=== PATIENT | female | born 1985 | race Caucasian/White ===

== ENCOUNTER → 2017-01-20 | Outpatient (CLI) | payer MEDICAID ==
[~2017-01-20] MED LIST: CEFU500T PO; DOCU100C37 PO; FERR-74 PO; FERR-84 PO; HYDR-3812 PO; IBUP-1773 PO; LEVO75TA6 PO; NITR-65 PO; PREN1TAB79 PO; TRAM50TA2 PO
--- NOTE | 2017-01-20 14:24 | Diagnostic Imaging Report ---
PROCEDURE: US Thyroid. TECHNIQUE: Multiple real-time grayscale images were obtained of the thyroid in various projections. INDICATION: Left-sided neck pain. COMPARISON: None. DISCUSSION: The thyroid gland is normal in size measuring 4.8 x 1.3 x 1.4 cm on the right and 4.1 x 1.2 x 1.4 cm on the left. The thyroid gland is not hypervascular. The thyroid gland is mildly heterogenous which is nonspecific though could be seen with some forms of thyroiditis. No discrete nodule or suspicious microcalcifications identified otherwise. No abnormal adjacent lymph nodes identified. IMPRESSION: 1. Heterogenous thyroid gland. Dictated by: Dictated on workstation # [id number]
== END ==
LOC: RAD 12:29
PROVIDERS: ATTEND Obstetrics & Gynecology
DX: E04.1 Nontoxic single thyroid nodule (principal)
CPT/HCPCS: 76536

== ENCOUNTER 2017-03-03 13:34 | Outpatient (RCR) | payer MEDICAID | END 2017-04-26 | disposition home or self-care (01) | LOC: CARD 13:34 | PROVIDERS: ATTEND Internal Medicine Interventional Cardiology | DX: R00.2 Palpitations (principal); R06.02 Shortness of breath; M25.473 Effusion, unspecified ankle | CPT/HCPCS: 93225; 93226 ==

== ENCOUNTER → 2017-03-03 | Outpatient (CLI) | payer MEDICAID | LOC: CARD 13:32 | PROVIDERS: ATTEND Internal Medicine Interventional Cardiology | DX: R00.2 Palpitations (principal); R06.02 Shortness of breath; M25.473 Effusion, unspecified ankle | CPT/HCPCS: 93306 ==

== ENCOUNTER → 2018-10-26 | Outpatient (CLI) | payer BC ==
[~2018-10-26] MED LIST changes: +ACHD5005 PO; -FERR-74 PO; +FERR325T18 PO; -HYDR-3812 PO
[2018-10-26 09:51] LABS: CALCIUM 9.5 MG/DL (8.5-10.1); CREATININE SERUM 1.1 MG/DL (0.60-1.30); POTASSIUM 4.5 MMOL/L (3.6-5.0)
== END ==
LOC: LAB 09:13
PROVIDERS: ATTEND Internal Medicine Endocrinology, Diabetes & Metabolism
DX: E28.2 Polycystic ovarian syndrome (principal); E03.8 Other specified hypothyroidism
CPT/HCPCS: 36415; 80048; 80061; 83036; 83525; 84443

== ENCOUNTER → 2018-10-29 | Outpatient (CLI) | payer BC ==
--- NOTE | 2018-10-29 21:16 | Diagnostic Imaging Report ---
INDICATION: Left axillary lump and tenderness. EXAMINATION: Sonographic interrogation of the left axilla was performed. FINDINGS: No sonographic abnormality is seen. No solid or cystic mass is identified. IMPRESSION: No sonographic abnormality is detected. Dictated by: Dictated on workstation # [id number]
== END ==
LOC: RAD 09:30
PROVIDERS: ATTEND Surgery
DX: R59.0 Localized enlarged lymph nodes (principal)
CPT/HCPCS: 76641

== ENCOUNTER → 2018-10-29 | Outpatient (CLI) | payer BC, MEDICAID ==
--- NOTE | 2018-10-29 14:09 | Diagnostic Imaging Report ---
PROCEDURE: US Non-ob pelvis comp/trans. TECHNIQUE: Multiple realtime grayscale images were obtained of the pelvis in various projections endovaginally. Transabdominal imaging was also performed. INDICATION: Pelvic pain. The uterus measures 6.1 x 5.5 x 3.3 cm. Patient has an IUD. IUD appears to be low in position in the region of the lower uterine segment and cervix. No myometrial mass is seen. Right ovary measures 4.0 x 3.8 x 2.3 cm and the left ovary measures 3.3 x 2.7 x 2.7 cm. Both ovaries contain small follicles. There is blood flow bilaterally. No adnexal mass or free fluid is seen. IMPRESSION: The patient's IUD appears to be in low in position in the region of the lower uterine segment and cervix. No other significant abnormalities detected. Dictated by: Dictated on workstation # [id number]
== END ==
LOC: RAD 09:29
PROVIDERS: ATTEND Obstetrics & Gynecology
DX: N94.19 Other specified dyspareunia (principal); R10.2 Pelvic and perineal pain; Z97.5 Presence of (intrauterine) contraceptive device
CPT/HCPCS: 76830; 76856

== ENCOUNTER → 2019-12-03 | Outpatient (CLI) | payer BC, MEDICAID, OTHER ==
[~2019-12-03] MED LIST changes: -TRAM50TA2 PO; +TRM50T PO
--- NOTE | 2019-12-03 14:57 | Diagnostic Imaging Report ---
PROCEDURE: US Non-ob pelvis comp/trans. TECHNIQUE: Multiple realtime grayscale images were obtained of the pelvis in various projections endovaginally. Transabdominal imaging was also performed. INDICATION: Atypical uterine bleeding. FINDINGS: The uterus is retroverted and measures 6.5 x 3.2 x 5.7 cm. The endometrial thickness is less than 3 mm. There are no myometrial or endometrial masses. Both ovaries normal size and morphology and demonstrate normal blood flow. There are no adnexal masses. There is no free pelvic fluid. IMPRESSION: Unremarkable pelvic ultrasound. Dictated by: Dictated on workstation # [id number]
== END ==
LOC: RAD 10:41
PROVIDERS: ATTEND Obstetrics & Gynecology
DX: N93.8 Other specified abnormal uterine and vaginal bleeding (principal)
CPT/HCPCS: 76830; 76856

== ENCOUNTER 2021-06-27 11:18 | Observation (INO) | payer MEDICAID ==
[2021-06-27] VITALS (9 sets, daily range): BP systolic 118–132; BP diastolic 56–80
[~2021-06-27] VITALS: Ht 160 cm; Wt 85.2 kg
[2021-06-27 11:43] LABS: BILIRUBIN,URINE NEGATIVE (NEGATIVE); CLARITY,URINE CLEAR; COLOR,URINE YELLOW; GLUCOSE, URINE (UA) NEGATIVE (NEGATIVE); KETONES,URINE NEGATIVE (NEGATIVE); LEUKOCYTE ESTERASE ,URINE NEGATIVE (NEGATIVE); NITRITE,URINE NEGATIVE (NEGATIVE); PH,URINE 6.5 (5-9); PROTEIN,URINE NEGATIVE (NEGATIVE)
[2021-06-27 12:02] LABS: BACTERIA,URINE TRACE /HPF; RBC,URINE RARE /HPF; WBC,URINE RARE /HPF
[2021-06-27] MEDS ORDERED: ACETAMINOPHEN 500 MG TAB (TYLENOL) PO ONE (14:00)
[2021-06-27] MEDS ORDERED: ACETAMINOPHEN 500 MG TAB (TYLENOL) ONE (14:03)
[2021-06-27] MEDS ORDERED: LACTATED RINGERS 1,000 ML IV ONE (14:03)
[2021-06-27] MEDS: LACTATED RINGERS 1,000 ML IV SCH ×5 (14:14→22:04)
--- NOTE | 2021-06-27 15:01 | OB Triage Report ---
Standard Progress Note Progress Notes/Assess & Plan Date Seen by a Provider: Jun 27, 2021 Time Seen by a Provider: 13:50 Expected Date of Delivery: Aug 02, 2021 Gestational Age in Weeks: 34 Gestational Age in Days: 6 LMP/BRENTON Comment: BRENTON 08/02/20 Diagnosis/Problems Diagnosis/Problems (1) (2) Threatened labor, antepartum KATHY FOREMAN MD Jun 27, 2021 15:01
[2021-06-27] MEDS ORDERED: BETAMETHASONE ACE/NA PHOS 6 MG/ML (CELESTONE SOLUSPAN) ONE (15:53)
[2021-06-27] MEDS: BETAMETHASONE ACE/NA PHOS 6 MG/ML (CELESTONE SOLUSPAN) IM SCH (15:54)
[2021-06-27] MEDS ORDERED: NIFEdipine 10 MG CAPS (WOMEN'S SERVICES ONLY!!!) PO ONE (16:30)
--- NOTE | 2021-06-27 16:43 | History & Physical-OB ---
OB - Chief Complaint & HPI Date/Time Date of Admission: Date of Admission: 06/27/21 Date seen by a Provider: Jun 27, 2021 Time Seen by a Provider: 15:30 Chief Complaint/History OB-Reason for Admission/Chief: Labor Hx : 5 Hx Para: 3 Expected Date of Delivery: Aug 02, 2021 Gestational Age in Weeks: 34 Gestational Age in Days: 6 Indication for : desires repeat Admission Nurse Assessment Rev: Yes History of Labs O neg, Rubella immune, Hep BsAg non-reactive, Syphilis Ab non-reactive, HIV non- reactive Allergies and Home Medications Allergies Coded Allergies: amoxicillin (Verified Allergy, Unknown, 03/15/15) Patient Home Medication List Home Medication List Reviewed: Yes Cefuroxime Axetil (Ceftin) 500 Mg Tablet, 500 MG PO BID Prescribed by: DAVID STEIN on 05/03/16 193 Last Action: Reviewed Ferrous Sulfate (Ferrous Sulfate) 325 Mg Tablet, 325 MG PO BID WITH MEALS Prescribed by: CANELO MANJARREZ on 09/11/15 0819 Last Action: Reviewed Levothyroxine Sodium (Levothyroxine Sodium) 75 Mcg Tablet, 175 MCG PO DAILY, (Reported) Entered as Reported by: WILMAR BRAR on 03/15/15 190 Last Action: Edited OB - History Hx of Present Care: Yes Ultrasounds: Abnormal US findings ( liver calcification) Obstetrical Complications: Gestational Diabetes, Other (Hypothyroidism) Medical Complications: Other (Hypothyroidism) Information Induced Hypertension: No Maternal Gestational Diabetes: Yes Hemorrhage: No Obstetrical History Hx : 5 Hx Para: 3 Hx Termination: Yes (Spontaneous ) Hx Total # of Abortions (Spona: 1 Hx Multiple Gestation: No Hx Stillbirth: No Hx Complication: Yes (Preclampsia) Hx Induced Hypertens: No Hx Maternal Gestational Diabet: Yes Delivery History Hx Dystocia: No Hx Large For Gestational Age I: No Hx Small for Gestational Age I: No Hx Section: No Hx Vaginal Delivery Post C-Sec: No Hx Blood Disorders: No Adverse Rxn to Tranfusion: No Patient Past Medical History Hypothyroidism Social History/Family History Alcohol Use: Denies Use Recreational Drug Use: No Immunizations Hepatitis A: No Hepatitis B: No Tetanus Booster (TDap): More than 5yrs Date of Influenza Vaccine: Apr 19, 2016 OB - Admission Exam Physical Exam Vitals: Vital Signs 06/27/21 11:54 Temp 36.7 Pulse 103 Resp 18 Pulse Ox 97 O2 Delivery Room Air HEENT: Comment: (Atraumatic) Lungs: Equal (non-labored, symmetric chest rise) Abdomen: Gravid Extremities: Normal Reflexes: Normal Cervical Dilatation: 1cm Effacement: 50% Station: -3 Membranes: Intact Heart Rate: 120's Accelerations: Accelerations Present Decelerations: No Decelerations Short Term Variability: Present Residential Variability: Average (6-25) Contractions on Admission: < 5 Minutes Apart Date/Time Contractions Began;: 06/26/2021 Labs Laboratory Tests Test 06/27/21 11:30 Range/Units Urine Color YELLOW Urine Clarity CLEAR Urine pH 6.5 5-9 Urine Specific [place] 1.020 1.016-1.022 Urine Protein NEGATIVE NEGATIVE Urine Glucose (UA) NEGATIVE NEGATIVE Urine Ketones NEGATIVE NEGATIVE Urine Nitrite NEGATIVE NEGATIVE Urine Bilirubin NEGATIVE NEGATIVE Urine Urobilinogen 0.2 < = 1.0 MG/DL Urine Leukocyte Esterase NEGATIVE NEGATIVE Urine RBC (Auto) NEGATIVE NEGATIVE Urine RBC RARE /HPF Urine WBC RARE /HPF Urine Squamous Epithelial Cells 5-10 /HPF Urine Crystals NONE /LPF Urine Bacteria TRACE /HPF Urine Casts NONE /LPF Urine Mucus NEGATIVE /LPF Urine Culture Indicated NO OB - Assessment/Plan/Diagnosis Assessment Assessment: other (Threatened labor) Admission Dx Threatened labor Admission Status: Observation Plan Plan: Other ( corticosteroid administration for lung maturity, Tocolysis) Problems: (1) Assessment & Plan: 36 yo with hx of labor and delivery, and IUP at 34w6d who presents with painful contractions Threatened labor - SVE 1.5/50/-3 - Contractions Q 3-5 minutes - corticosteroid for lung maturity - Tocolysis through corticosteroid window Gestational diabetes: continue home metformin and insulin doses per pat report - Metformin 500mg PO BID - Insulin Lantus 18u QHS - POC glucose monitoring fasting and 2 hr PP levels Hypothyroidism - Home Levothyroxine dose at 175mcg daily Delivery plan - Pt desires repeat delivery if delivery is indicated SCDs while in bed Regular diet: meal by meal cEFM IV Fluids: NS at 125m/hr Qualifiers: Qualified Codes: Z3A.34 - 34 weeks gestation of (2) Threatened labor, antepartum KELLEN,EBUNOLUWA O MD Jun 27, 2021 16:43
[2021-06-27] MEDS ORDERED: ACETAMINOPHEN 500 MG TAB (TYLENOL) PO PRN (17:00)
[2021-06-27 17:38] LABS: BASOPHILS % (AUTO) 0 % (0-10); EOSINOPHILS # (AUTO) 0.1 10^3/uL (0.0-0.3); EOSINOPHILS % (AUTO) 1 % (0-10); HEMATOCRIT 29 % (35-52); HEMOGLOBIN 9.7 g/dL (11.5-16.0); LYMPHOCYTES # (AUTO) 1.1 10^3/uL (1.0-4.0); LYMPHOCYTES % (AUTO) 15 % (12-44); MEAN CORPUSCULAR HEMOGLOBIN 30 pg (25-34); MEAN CORPUSCULAR HGB CONC 33 g/dL (32-36); MEAN CORPUSCULAR VOLUME 90 fL (80-99); MEAN PLATELET VOLUME 10.8 fL (9.0-12.2); MONOCYTES # (AUTO) 0.6 10^3/uL (0.0-1.0); MONOCYTES % (AUTO) 8 % (0-12); NEUTROPHILS # (AUTO) 5.8 10^3/uL (1.8-7.8); NEUTROPHILS % (AUTO) 76 % (42-75); PLATELET COUNT 169 10^3/uL (130-400); WHITE BLOOD COUNT 7.6 10^3/uL (4.3-11.0)
[2021-06-27] MEDS ORDERED: NIFEdipine 10 MG CAPS (WOMEN'S SERVICES ONLY!!!) PO SCH (18:00)
[2021-06-27] MEDS ORDERED: CYCLOBENZAPRINE 10 MG (FLEXERIL) TAB PO PRN (20:15)
[2021-06-27] MEDS: DOCUSATE SODIUM 100 MG (COLACE) CAP PO SCH (20:20)
[2021-06-27] MEDS: metFORMIN 500 MG (GLUCOPHAGE) TAB PO SCH (20:26)
[2021-06-27] MEDS: FERROUS SULF 325 MG (IRON) TAB PO SCH (20:26)
[2021-06-27] MEDS: metroNIDAZOLE 500 MG (FLAGYL) TAB PO SCH (20:27)
[2021-06-27] MEDS ORDERED: TERBUTALINE INJ 1 MG/ML (BRETHINE) AMP SC ONE (20:30)
[2021-06-27] MEDS: NIFEdipine 10 MG CAPS (WOMEN'S SERVICES ONLY!!!) PO SCH (21:59)
[2021-06-27] MEDS: CATHETER FLUSH 10 ML SYR IV SCH (22:04)
[2021-06-28] VITALS (9 sets, daily range): BP systolic 103–123; BP diastolic 56–70
[2021-06-28] MEDS: NIFEdipine 10 MG CAPS (WOMEN'S SERVICES ONLY!!!) PO SCH ×3 (03:27→15:31)
[2021-06-28] MEDS: LACTATED RINGERS 1,000 ML IV SCH (04:52)
[2021-06-28] MEDS: CATHETER FLUSH 10 ML SYR IV SCH (05:31)
[2021-06-28] MEDS ORDERED: LEVOTHYROXINE 100 MCG (LEVOTHROID) TAB PO SCH (06:30)
[2021-06-28] MEDS ORDERED: LEVOTHYROXINE 75 MCG (LEVOTHROID) TABLET PO SCH (06:30)
[2021-06-28] MEDS: metroNIDAZOLE 500 MG (FLAGYL) TAB PO SCH (09:01)
[2021-06-28] MEDS: FERROUS SULF 325 MG (IRON) TAB PO SCH (09:01)
[2021-06-28] MEDS: DOCUSATE SODIUM 100 MG (COLACE) CAP PO SCH (09:01)
[2021-06-28] MEDS: metFORMIN 500 MG (GLUCOPHAGE) TAB PO SCH (09:01)
[2021-06-28 12:14] LABS: BASOPHILS % (AUTO) 0 % (0-10); EOSINOPHILS % (AUTO) 0 % (0-10); HEMATOCRIT 29 % (35-52); HEMOGLOBIN 9.7 g/dL (11.5-16.0); LYMPHOCYTES # (AUTO) 1.1 10^3/uL (1.0-4.0); LYMPHOCYTES % (AUTO) 11 % (12-44); MEAN CORPUSCULAR HEMOGLOBIN 30 pg (25-34); MEAN CORPUSCULAR HGB CONC 33 g/dL (32-36); MEAN CORPUSCULAR VOLUME 90 fL (80-99); MEAN PLATELET VOLUME 10.4 fL (9.0-12.2); MONOCYTES # (AUTO) 0.9 10^3/uL (0.0-1.0); MONOCYTES % (AUTO) 9 % (0-12); NEUTROPHILS # (AUTO) 8.1 10^3/uL (1.8-7.8); NEUTROPHILS % (AUTO) 79 % (42-75); PLATELET COUNT 181 10^3/uL (130-400); WHITE BLOOD COUNT 10.2 10^3/uL (4.3-11.0)
--- NOTE | 2021-06-28 12:41 | Antepartum Progress Note ---
Antepartum Progress Antepartum Progress Date Seen by Provider: Jun 28, 2021 Time Seen by Provider: 12:00 Hospital Day # 1 Subjective: No new complaints today. Notes good movements. Continues to note contractions unchanged from admission. Some improvement last night. Cramping today. Denies vaginal bleeding, abnormal vaginal discharge, or LOF. Tolerating regular diet without nausea or vomiting. Objective: Vital Signs 06/27/21 06/27/21 06/28/21 11:54 17:01 05:30 Temp 36.7 Pulse 90 Resp 18 B/P (MAP) 103/69 (80) Pulse Ox 97 O2 Delivery Room Air Physical Exam General - alert and oriented, no apparent distress Heart: normal rate and peripheral perfusion Lungs: symmetric chest rise, non-labored respirations Abdomen: Soft, gravid, non-tender to palpation Ext: non-tender to palpation, no edema, negative Eva's bilaterally heart tones: 120bpm, mod variability, + accels, intermittent jeb Decels Tocometer: contractions q 5-10 min Bedside US: no overt evidence of placental abruption Laboratory Tests Test 06/27/21 17:25 06/27/21 20:03 06/28/21 06:25 06/28/21 12:05 Range/Units White Blood Count 7.6 10.2 4.3-11.0 10^3/uL Red Blood Count 3.21 L 3.22 L 3.80-5.11 10^6/uL Hemoglobin 9.7 L 9.7 L 11.5-16.0 g/dL Hematocrit 29 L 29 L 35-52 % Mean Corpuscular Volume 90 90 80-99 fL Mean Corpuscular Hemoglobin 30 30 25-34 pg Mean Corpuscular Hemoglobin Concent 33 33 32-36 g/dL Red Cell Distribution Width 14.4 14.5 10.0-14.5 % Platelet Count 169 181 130-400 10^3/uL Mean Platelet Volume 10.8 10.4 9.0-12.2 fL Immature Granulocyte % (Auto) 1 1 % Neutrophils (%) (Auto) 76 H 79 H 42-75 % Lymphocytes (%) (Auto) 15 11 L 12-44 % Monocytes (%) (Auto) 8 9 0-12 % Eosinophils (%) (Auto) 1 0 0-10 % Basophils (%) (Auto) 0 0 0-10 % Neutrophils # (Auto) 5.8 8.1 H 1.8-7.8 10^3/uL Lymphocytes # (Auto) 1.1 1.1 1.0-4.0 10^3/uL Monocytes # (Auto) 0.6 0.9 0.0-1.0 10^3/uL Eosinophils # (Auto) 0.1 0.0 0.0-0.3 10^3/uL Basophils # (Auto) 0.0 0.0 0.0-0.1 10^3/uL Immature Granulocyte # (Auto) 0.1 0.1 0.0-0.1 10^3/uL Glucometer 129 H 96 70-110 MG/DL Assessment: Dewayne Gann is a 36 yo /Para 5/3, with IUP at 35 weeks gestation who was admitted for threatened labor. Bedside ultrasound performed today without overt evidence of placental abruption Plan: UA negative infection Bacterial vaginosis: continue flagyl course 2nd dose BMZ course today Continue tocolysis with Nifedipine through BMZ course Continue IV fluids Desires repeat section if delivery is indicated Regular diet vitamin daily. VTE prophylaxis: SCDs while in bed Anticipate discharge later today pending completion of corticosteroids, if no cervical change. Vitals - Labs Vital Signs - I&O Vital Signs Date Time Temp Pulse Resp B/P (MAP) Pulse Ox O2 Delivery O2 Flow Rate FiO2 06/28/21 05:30 90 103/69 (80) 06/28/21 04:30 81 110/68 (82) 06/28/21 03:30 94 122/61 (81) 06/28/21 02:30 91 106/70 (82) 06/28/21 01:30 92 105/58 (74) 06/28/21 00:30 88 105/57 (73) 06/28/21 00:00 94 108/56 (73) 06/27/21 22:15 109 118/56 (76) 06/27/21 22:00 99 118/64 (82) 06/27/21 21:45 109 129/73 (91) 06/27/21 21:30 110 132/75 (94) 06/27/21 21:15 107 122/76 (91) 06/27/21 21:00 99 128/75 (92) 06/27/21 20:45 101 128/74 (92) 06/27/21 17:01 85 18 120/70 (87) Room Air I & O 06/28/21 07:00 Intake Total 1000 ml Balance 1000 ml Labs Laboratory Tests 06/27/21 17:25: White Blood Count 7.6, Red Blood Count 3.21L, Hemoglobin 9.7L, Hematocrit 29L, Mean Corpuscular Volume 90, Mean Corpuscular Hemoglobin 30, Mean Corpuscular Hemoglobin Concent 33, Red Cell Distribution Width 14.4, Platelet Count 169, Mean Platelet Volume 10.8, Immature Granulocyte % (Auto) 1, Neutrophils (%) (Auto) 76H, Lymphocytes (%) (Auto) 15, Monocytes (%) (Auto) 8, Eosinophils (%) (Auto) 1, Basophils (%) (Auto) 0, Neutrophils # (Auto) 5.8, Lymphocytes # (Auto) 1.1, Monocytes # (Auto) 0.6, Eosinophils # (Auto) 0.1, Basophils # (Auto) 0.0, Immature Granulocyte # (Auto) 0.1 06/27/21 20:03: Glucometer 129H 06/28/21 06:25: Glucometer 96 06/28/21 12:05: White Blood Count 10.2, Red Blood Count 3.22L, Hemoglobin 9.7L, Hematocrit 29L, Mean Corpuscular Volume 90, Mean Corpuscular Hemoglobin 30, Mean Corpuscular Hemoglobin Concent 33, Red Cell Distribution Width 14.5, Platelet Count 181, Mean Platelet Volume 10.4, Immature Granulocyte % (Auto) 1, Neutrophils (%) (Auto) 79H, Lymphocytes (%) (Auto) 11L, Monocytes (%) (Auto) 9, Eosinophils (%) (Auto) 0, Basophils (%) (Auto) 0, Neutrophils # (Auto) 8.1H, Lymphocytes # (Auto) 1.1, Monocytes # (Auto) 0.9, Eosinophils # (Auto) 0.0, Basophils # (Auto) 0.0, Immature Granulocyte # (Auto) 0.1 Microbiology 06/27/21 Wet Prep - Final, Complete KATHY FOREMAN MD Jun 28, 2021 12:41
[2021-06-28 12:49] LABS: BAND NEUTROPHILS 0 %; BASOPHILS % (MANUAL) 0 %; EOSINOPHILS % (MANUAL) 0 %; LYMPHOCYTES % (MANUAL) 10 %; MONOCYTES % (MANUAL) 4 %; NEUTROPHILS % (MANUAL) 86 %; RBC MORPH NORMAL
[2021-06-28] MEDS: BETAMETHASONE ACE/NA PHOS 6 MG/ML (CELESTONE SOLUSPAN) IM SCH (15:32)
[2021-06-28] MEDS ORDERED: METR-145 PO (15:47)
--- NOTE | 2021-06-28 15:52 | Discharge Inst-Simple/Standard ---
Discharge Inst-Standard Reconcile Patient Problems Problems Reviewed?: Yes Discharge Medications New, Converted or Re-Newed RX: Transmitted to Pharmacy Patient Instructions/Follow Up Plan of Care/Instructions/FU: Keep all follow-up appointments Activity as Tolerated: Yes Discharge Diet: No Restrictions Return to The Hospital For: Vaginal bleeding, decreased/absent movements, leakage of fluid per vagina, more frequent and painful contractions. Fever of 100.4 F or greater, or other concerns. KATHY FOREMAN MD Jun 28, 2021 15:52
--- NOTE | 2021-06-28 15:52 | Short Stay Summary ---
Discharge Summary Hospital Course Was the Problem List Reviewed?: Yes Problems/Dx: (1) Qualifiers: Qualified Codes: Z3A.34 - 34 weeks gestation of (2) Threatened labor, antepartum Final Diagnosis: Threatened Labor Hospital Course Date of Admission: Jun 27, 2021 at 16:00 Admission Diagnosis : Family Physician/Provider: No,Local Physician Date of Discharge: 06/28/21 Discharge Diagnosis: Threatened labor Hospital Course: Dewayne Gann is a 36 yo with hx of labor and delivery, and IUP at 35 weeks GA, who presents with painful contractions. Her care has been with Dr. Velasquez, and is complicated by gestational diabetes, and hx of deliveries. On presentation, patient was dilated /3, membran es were intact, and she was having regular and frequent contractions that were painful per pt report. Vitals signs were stable, physical exam was benign. She did not have any vaginal bleeding, and FHT was reassuring. Her pain was unrelieved medications in triage, and she was admitted for observation and corticosteroids administration. She received corticosteroid course with betamethasone x2 doses on 06/27/21 and 06/27/22. She received IV fluids as well as pain management. Her contraction pattern spaced out and cervix remained unchanged. Her pain was tolerable, and patient desired discharge home. She was clinically stable, and there was no evidence of labor. She was therefore discharged home with instructions for continued outpatient care follow-up Labs and Pending Lab Test: Laboratory Tests 06/27/21 17:25: White Blood Count 7.6, Red Blood Count 3.21L, Hemoglobin 9.7L, Hematocrit 29L, Mean Corpuscular Volume 90, Mean Corpuscular Hemoglobin 30, Mean Corpuscular Hemoglobin Concent 33, Red Cell Distribution Width 14.4, Platelet Count 169, Mean Platelet Volume 10.8, Immature Granulocyte % (Auto) 1, Neutrophils (%) (Auto) 76H, Lymphocytes (%) (Auto) 15, Monocytes (%) (Auto) 8, Eosinophils (%) (Auto) 1, Basophils (%) (Auto) 0, Neutrophils # (Auto) 5.8, Lymphocytes # (Auto) 1.1, Monocytes # (Auto) 0.6, Eosinophils # (Auto) 0.1, Basophils # (Auto) 0.0, Immature Granulocyte # (Auto) 0.1 06/27/21 20:03: Glucometer 129H 06/28/21 06:25: Glucometer 96 06/28/21 12:05: White Blood Count 10.2, Red Blood Count 3.22L, Hemoglobin 9.7L, Hematocrit 29L, Mean Corpuscular Volume 90, Mean Corpuscular Hemoglobin 30, Mean Corpuscular Hemoglobin Concent 33, Red Cell Distribution Width 14.5, Platelet Count 181, Mean Platelet Volume 10.4, Immature Granulocyte % (Auto) 1, Neutrophils (%) (Auto) 79H, Lymphocytes (%) (Auto) 11L, Monocytes (%) (Auto) 9, Eosinophils (%) (Auto) 0, Basophils (%) (Auto) 0, Neutrophils # (Auto) 8.1H, Lymphocytes # (Auto) 1.1, Monocytes # (Auto) 0.9, Eosinophils # (Auto) 0.0, Basophils # (Auto) 0.0, Immature Granulocyte # (Auto) 0.1, Neutrophils % (Manual) 86, Lymphocytes % (Manual) 10, Monocytes % (Manual) 4, Eosinophils % (Manual) 0, Basophils % (Manual) 0, Band Neutrophils 0, Blood Morphology Comment NORMAL Microbiology 06/27/21 Wet Prep - Final, Complete Home Meds Active Metronidazole 500 Mg Tablet 500 Mg PO BID 6 Days Ferrous Sulfate 325 Mg Tablet 325 Mg PO BID WITH MEALS Reported Levothyroxine Sodium 75 Mcg Tablet 175 Mcg PO DAILY Assessment/Pt Instructions - Return for decreased movement, leakage of fluid, vaginal bleeding, regular painful contractions, temperature >100.4 degrees, intractable nausea or vomiting, headaches that don't go away with treatment, spots in your vision, chest pain/shortness of breath or other concerns. - Keep all follow up appointments. Discharge Instructions Discharge Diet: No Restrictions Activity as Tolerated: Yes Discharge Physical Examination Allergies: Coded Allergies: amoxicillin (Verified Allergy, Unknown, 03/15/15) Discharge Summary Date of Admission Jun 27, 2021 at 16:00 Date of Discharge 06/28/2021 Discharge Date: Jun 28, 2021 Discharge Diagnosis (1) Assessment & Plan: 36 yo with hx of labor and delivery, and IUP at 34w6d who presents with painful contractions Threatened labor - SVE 1.5/50/-3 - Contractions Q 3-5 minutes - corticosteroid for lung maturity - Tocolysis through corticosteroid window Gestational diabetes: continue home metformin and insulin doses per pat report - Metformin 500mg PO BID - Insulin Lantus 18u QHS - POC glucose monitoring fasting and 2 hr PP levels Hypothyroidism - Home Levothyroxine dose at 175mcg daily Delivery plan - Pt desires repeat delivery if delivery is indicated SCDs while in bed Regular diet: meal by meal cEFM IV Fluids: NS at 125m/hr Qualifiers: Qualified Codes: Z3A.34 - 34 weeks gestation of (2) Threatened labor, antepartum KATHY FOREMAN MD Jun 28, 2021 15:52
== END 2021-06-28 16:00 | disposition home or self-care (01) ==
LOC: WSo 11:18 → LDRP 11:22 → WSo 16:00 → LDRP 16:00
PROVIDERS: ADMIT Obstetrics & Gynecology; ATTEND Obstetrics & Gynecology
DX: O60.03 Preterm labor without delivery, third trimester (principal); O34.219 Maternal care for unspecified type scar from previous cesarean delivery; O09.523 Supervision of elderly multigravida, third trimester; O24.419 Gestational diabetes mellitus in pregnancy, unspecified control; O99.283 Endocrine, nutritional and metabolic diseases complicating pregnancy, third trimester; Z3A.35 35 weeks gestation of pregnancy; Z79.890 Hormone replacement therapy; Z79.899 Other long term (current) drug therapy; Z79.84 Long term (current) use of oral hypoglycemic drugs
CPT/HCPCS: 81000; 82947 ×2; 85007; 85025; 85027; 86850; 86900; 86901; 87210; 96360; 96361 ×2; 96372 ×2; G0378; G0379; 36415

== ENCOUNTER 2021-07-08 13:09 | Outpatient (CLI) | payer MEDICAID ==
[~2021-07-08] VITALS: Ht 160 cm; Wt 83.6 kg
[~2021-07-08 13:09] MED LIST changes: +METR-145 PO
[2021-07-08 13:30] VITALS: BP 137/82
[2021-07-08] MEDS ORDERED: METF-399 PO (13:34)
[2021-07-08 13:53] LABS: BILIRUBIN,URINE NEGATIVE (NEGATIVE); CLARITY,URINE SL CLOUDY; COLOR,URINE YELLOW; GLUCOSE, URINE (UA) NEGATIVE (NEGATIVE); KETONES,URINE NEGATIVE (NEGATIVE); LEUKOCYTE ESTERASE ,URINE TRACE (NEGATIVE); NITRITE,URINE NEGATIVE (NEGATIVE); PROTEIN,URINE NEGATIVE (NEGATIVE)
[2021-07-08 14:11] LABS: BACTERIA,URINE TRACE /HPF; WBC,URINE RARE /HPF
[2021-07-08] MEDS ORDERED: INSU100V6 SQ (14:11)
[2021-07-08] MEDS ORDERED: CYCLOBENZAPRINE 10 MG (FLEXERIL) TAB PO ONE (15:15)
[2021-07-08] MEDS ORDERED: NS IV 1000 ML 1,000 ML IV SCH (15:15)
[2021-07-08] MEDS ORDERED: ACETAMINOPHEN 500 MG TAB (TYLENOL) PO PRN (15:15)
[2021-07-08 16:00] VITALS: BP 117/77
[2021-07-08 16:01] LABS: BASOPHILS % (AUTO) 0 % (0-10); EOSINOPHILS # (AUTO) 0.1 10^3/uL (0.0-0.3); EOSINOPHILS % (AUTO) 1 % (0-10); HEMATOCRIT 33 % (35-52); HEMOGLOBIN 10.9 g/dL (11.5-16.0); LYMPHOCYTES # (AUTO) 1.7 10^3/uL (1.0-4.0); LYMPHOCYTES % (AUTO) 17 % (12-44); MEAN CORPUSCULAR HEMOGLOBIN 30 pg (25-34); MEAN CORPUSCULAR HGB CONC 33 g/dL (32-36); MEAN CORPUSCULAR VOLUME 90 fL (80-99); MEAN PLATELET VOLUME 11.2 fL (9.0-12.2); MONOCYTES # (AUTO) 0.9 10^3/uL (0.0-1.0); MONOCYTES % (AUTO) 9 % (0-12); NEUTROPHILS # (AUTO) 7.2 10^3/uL (1.8-7.8); NEUTROPHILS % (AUTO) 72 % (42-75); PLATELET COUNT 191 10^3/uL (130-400); WHITE BLOOD COUNT 9.9 10^3/uL (4.3-11.0)
[2021-07-08 16:16] LABS: ALBUMIN 3.5 GM/DL (3.2-4.5)
[2021-07-08 16:17] LABS: POTASSIUM 4.5 MMOL/L (3.6-5.0)
[2021-07-08 16:18] LABS: CALCIUM 10.1 MG/DL (8.5-10.1)
[2021-07-08 16:21] LABS: BILIRUBIN,TOTAL 0.3 MG/DL (0.1-1.0)
[2021-07-08 16:23] LABS: CREATININE SERUM 0.88 MG/DL (0.60-1.30)
[2021-07-08 16:30] VITALS: BP 125/71
[2021-07-08 17:00] VITALS: BP 121/72
[2021-07-08 17:30] VITALS: BP 126/74
[2021-07-08 18:00] VITALS: BP 130/70
--- NOTE | 2021-07-09 08:07 | Physician Query-Final Dx ---
GRISELDA07/09/21 0807: Clinic Account Progress/Dx Physician Query: Please give diagnosis Please include # weeks gestation Date of Service Jul 08, 2021 at 13:09 KATHY FOREMAN MD 07/10/21 1411: Clinic Account Progress/Dx DIAGNOSIS: Diagnosis: (1) Uterine contractions Diagnosis Uterine Contractions GRISELDA,JulJul 09, 2021 08:07 KATHY FOREMAN MD Jul 10, 2021 14:11
== END 2021-07-08 18:13 | disposition home or self-care (01) ==
LOC: WSo 13:09 → LDRP 13:09 → WSo 18:13
PROVIDERS: ATTEND Obstetrics & Gynecology
DX: Z34.90 Encounter for supervision of normal pregnancy, unspecified, unspecified trimester (principal); Z3A.00 Weeks of gestation of pregnancy not specified
CPT/HCPCS: 36415; 80053; 81000; 85025; 96360; 99213

== ENCOUNTER 2021-07-09 09:46 | Inpatient (IN) | payer MEDICAID ==
[2021-07-09] VITALS (9 sets, daily range): BP systolic 105–130; BP diastolic 59–76
[~2021-07-09] VITALS: Ht 160 cm; Wt 85.0 kg
[~2021-07-09 09:46] MED LIST changes: +INSU100V6 SQ; +METF-399 PO
--- NOTE | 2021-07-09 10:52 | History & Physical-OB ---
OB - Chief Complaint & HPI Date/Time Date of Admission: Date of Admission: 07/09/2021 Date seen by a Provider: Jul 09, 2021 Time Seen by a Provider: 11:30 Chief Complaint/History OB-Reason for Admission/Chief: GHTN Hx : 5 Hx Para: 3 Expected Date of Delivery: Aug 02, 2021 Gestational Age in Weeks: 36 Gestational Age in Days: 4 Indication for : desires repeat Admission Nurse Assessment Rev: Yes History of Labs O neg Antibody neg RI RPR NR HBsAg NR HIV NR GC neg GBS pending/unknown Allergies and Home Medications Allergies Coded Allergies: amoxicillin (Verified Allergy, Unknown, 03/15/15) Patient Home Medication List Home Medication List Reviewed: Yes Ferrous Sulfate (Ferrous Sulfate) 325 Mg Tablet, 325 MG PO BID WITH MEALS Prescribed by: CANELO MANJARREZ on 09/11/15 0819 Last Action: Last Taken Edited Insulin Glargine,Hum.rec.anlog (Lantus) 100 Unit/1 Ml Vial, 20 UNIT SQ HS, (Reported) Entered as Reported by: ROMMEL RALPH on 07/08/21 1411 Last Action: Last Taken Edited Levothyroxine Sodium (Levothyroxine Sodium) 75 Mcg Tablet, 175 MCG PO DAILY, (Reported) Entered as Reported by: WILMAR BRAR on 03/15/15 1905 Last Action: Last Taken Edited Metformin HCl (Metformin HCl) 1,000 Mg Tablet, 1,000 MG PO BID, (Reported) Entered as Reported by: ROMMEL RALPH on 07/08/21 1334 Last Action: Last Taken Edited Discontinued Medications Metronidazole (Metronidazole) 500 Mg Tablet, 500 MG PO BID Discontinued Reason: No Longer Taking Prescribed by: KATHY FOREMAN on 06/28/21 1547 Last Action: Discontinued OB - History Hx of Present Care: Yes Ultrasounds: Normal mid trimester US Obstetrical Complications: Gestational Diabetes, Gestational Hypertension, Autoimmune Disease (Hypothyroidism), Other (AMA) Medical Complications: None Obstetrical History Hx Termination: Yes (Spontaneous ) Hx Multiple Gestation: No Hx Stillbirth: No Hx Complication: Yes (Preclampsia) Hx Induced Hypertens: No Hx Maternal Gestational Diabet: Yes Delivery History Hx Dystocia: No Hx Large For Gestational Age I: No Hx Small for Gestational Age I: No Hx Section: No Hx Vaginal Delivery Post C-Sec: No Hx Blood Disorders: No Adverse Rxn to Tranfusion: No Patient Past Medical History Hypothyroidism Immunizations Hepatitis A: No Hepatitis B: No Tetanus Booster (TDap): More than 5yrs OB - Admission Exam Physical Exam HEENT: NCAT Heart: Rhythm Normal Lungs: Clear Abdomen: Gravid Extremities: Normal Reflexes: Normal Heart Rate: 130's Accelerations: Accelerations Present Decelerations: No Decelerations Short Term Variability: Present Fdc Variability: Average (6-25) Contractions on Admission: < 5 Minutes Apart Intensity: Moderate OB - Assessment/Plan/Diagnosis Assessment Assessment: section, labor Admission Dx 36 yo @ 36 weeks Previous x2 labor GDMA2- Metformin and Insulin Hypothyroidism AMA Admission Status: Inpatient Order (span 2 midnights) Reason for Inpatient Admission: Repeat Plan Plan: Section CANELO MANJARREZ DO Jul 09, 2021 10:52
[2021-07-09] MEDS ORDERED: CATHETER FLUSH 10 ML SYR IV PRN (11:00)
[2021-07-09] MEDS ORDERED: LACTATED RINGERS 1,000 ML IV PRN ×2 (11:00)
[2021-07-09] MEDS ORDERED: CITRIC ACID/SOB CIT (BICITRA) 30 ML UDC PO ONE ×2 (11:00→13:15)
[2021-07-09] MEDS ORDERED: FAMOTIDINE 20MG/2ML IV (PEPCID) IV ONE ×2 (11:00→13:15)
[2021-07-09] MEDS ORDERED: METOCLOPRAMIDE INJ 10 MG/2 ML (REGLAN) IV ONE ×2 (11:00→13:15)
[2021-07-09 11:18] LABS: BASOPHILS % (AUTO) 0 % (0-10); EOSINOPHILS # (AUTO) 0.1 10^3/uL (0.0-0.3); EOSINOPHILS % (AUTO) 1 % (0-10); HEMATOCRIT 33 % (35-52); HEMOGLOBIN 10.6 g/dL (11.5-16.0); LYMPHOCYTES # (AUTO) 1.3 10^3/uL (1.0-4.0); LYMPHOCYTES % (AUTO) 18 % (12-44); MEAN CORPUSCULAR HEMOGLOBIN 30 pg (25-34); MEAN CORPUSCULAR HGB CONC 33 g/dL (32-36); MEAN CORPUSCULAR VOLUME 92 fL (80-99); MEAN PLATELET VOLUME 10.7 fL (9.0-12.2); MONOCYTES # (AUTO) 0.6 10^3/uL (0.0-1.0); MONOCYTES % (AUTO) 8 % (0-12); NEUTROPHILS # (AUTO) 5.5 10^3/uL (1.8-7.8); NEUTROPHILS % (AUTO) 73 % (42-75); PLATELET COUNT 172 10^3/uL (130-400); WHITE BLOOD COUNT 7.6 10^3/uL (4.3-11.0)
[2021-07-09 11:28] LABS: ALBUMIN 3.4 GM/DL (3.2-4.5)
[2021-07-09 11:29] LABS: CALCIUM 9.1 MG/DL (8.5-10.1)
[2021-07-09 11:30] LABS: TOTAL PROTEIN 6.8 GM/DL (6.4-8.2)
[2021-07-09 11:32] LABS: BILIRUBIN,TOTAL 0.3 MG/DL (0.1-1.0)
[2021-07-09 11:34] LABS: CREATININE SERUM 0.82 MG/DL (0.60-1.30)
[2021-07-09 11:37] LABS: URIC ACID 6.7 MG/DL (2.6-7.2)
[2021-07-09] MEDS ORDERED: LACTATED RINGERS 1,000 ML IV SCH ×2 (13:15)
[2021-07-09] MEDS ORDERED: MEASLES,MUMPS,RUBELLA 1 EA INJ SC SCH (13:15)
[2021-07-09] MEDS ORDERED: NALOXONE 0.4 MG/ML 1 ML (NARCAN) VIAL IV PRN (13:15)
[2021-07-09] MEDS ORDERED: TETANUS,DIPTH,PERTUSS P/F (BOOSTRIX) 0.5 ML VIAL IM SCH (13:15)
[2021-07-09] MEDS ORDERED: ONDANSETRON 4 MG/2 ML (SDV) Z0FRAN IVP PRN (13:15)
[2021-07-09] MEDS ORDERED: OXYTOCIN PRE-MIX DRIP 1,000 ML IV ONE (13:18)
[2021-07-09] MEDS ORDERED: fentaNYL INJ 100 MCG/2 ML AMP ONE (13:18)
[2021-07-09] MEDS ORDERED: ceFAZolin 2 GM IV Premixed 50 ML ONE (13:25)
[2021-07-09] MEDS ORDERED: PHENYLEPHRINE 100 MCG/ML 10 ML (ANESTHESIA) SYR ONE (13:59)
[2021-07-09] MEDS ORDERED: BUPIVACAINE 0.5% 30 ML (SENSORCAINE) VIAL ONE (14:05)
[2021-07-09] MEDS ORDERED: KETOROLAC 30 MG/ML VIAL ONE (15:14)
[2021-07-09] MEDS ORDERED: OXYTOCIN PRE-MIX DRIP 500 ML IV ONE (15:14)
[2021-07-09] MEDS: KETOROLAC 30 MG/ML VIAL IV SCH ×2 (15:18→20:31)
[2021-07-09] MEDS: CATHETER FLUSH 10 ML SYR IV SCH ×2 (17:12→20:31)
[2021-07-09] MEDS: HYDROcodone/APAP 5 MG/325 MG (LORTAB) TAB PO PRN (19:37)
[2021-07-09] MEDS: DOCUSATE SODIUM 100 MG (COLACE) CAP PO SCH (20:32)
--- NOTE | 2021-07-10 00:24 | OPERATIVE REPORT ---
DATE OF SERVICE: PREOPERATIVE DIAGNOSES: 1. A 36-year-old G5, P3 at 36 weeks and 4 days gestation. 2. labor. 3. Previous section. 4. Gestational diabetes White classification A2. 5. Gestational hypertension. 6. Advanced maternal age. POSTOPERATIVE DIAGNOSES: 1. A 36-year-old G5, P3 at 36 weeks and 4 days gestation. 2. labor. 3. Previous section. 4. Gestational diabetes White classification A2. 5. Gestational hypertension. 6. Advanced maternal age. PROCEDURE: Repeat low transverse section. SURGEON: Carlitos Manjarrez DO ANESTHESIA: Spinal. ESTIMATED BLOOD LOSS: 500 mL. URINE OUTPUT: 400 mL clear at the end of the procedure. FLUIDS: 2100 mL lactated Ringer's solution. FINDINGS: A live female infant weighing 6 pounds 12 ounces, Apgars of 8 and 9. Grossly normal appearing uterus, bilateral fallopian tubes and ovaries. SPECIMEN SENT: Placenta. INDICATIONS FOR PROCEDURE: A 36-year-old female is a patient who was seen earlier today by maternal medicine specialist, Dr. Mckeon at [place]. There were concerns with her blood pressure. She was sent inpatient for evaluation. Upon evaluation, she was found to be nahomy every 2 to 3 minutes and rating the contractions 6 to 8 out of 10 in discomfort. She also had blood pressures 130s over 80s. There was no evidence of preeclampsia with her lab work; however, due to contractions and discomfort decision was made to proceed with delivery. Risk of the have already been reviewed with the patient, but again reviewed in the preoperative area, consent was obtained, the patient was taken to the operating room. OPERATIVE REPORT IN DETAIL: Once in the operating room, spinal analgesia was found to be adequate, she was placed in the supine position with leftward tilt, prepped and draped in normal sterile fashion. Timeout was performed and anesthesia was tested. I then made a Pfannenstiel skin incision through the previously existing scar using knife and carried down to underlying fascia using Bovie cautery. The fascial incision extended laterally using Bovie cautery. Superior aspect of fascial incision was then grasped with Erasmo clamps, tented up and dissected off the underlying rectus muscles. The inferior aspect of fascial incision was then grasped with Erasmo clamps, tented up and dissected off the underlying rectus muscles. Rectus muscles were then dissected down the midline using sharp dissection, which exposed the peritoneum, which I entered bluntly and extended using blunt traction. An Raul ring retractor was placed in the peritoneal incision, which offers excellent lateral sidewall retraction. I identified the lower uterine segment and it was found to be thinned out. I make a low transverse incision to the vesicouterine peritoneum and bluntly dissected off the lower uterine segment, creating a bladder flap. I then proceeded with my myotomy until membranes were visualized, at which point extended the uterine incision laterally and superiorly using bandage scissors. Amniotomy was then performed using Allis clamp. Clear fluid was noted. was found in vertex presentation. With gentle fundal pressure, the infant's head was elevated up the incision where it was delivered through the incision. The nares and oropharynx were bulb suctioned. Anterior and posterior shoulders were delivered. The infant was then brought to the operative field with cord doubly clamped and cut and was handed off to Dr. Alba, who was awaiting attendant. Cord blood was collected, 3-vessel cord with intact placenta was delivered spontaneously thereafter. IV Pitocin was initiated to facilitate uterine contraction. Uterine fundus confirmed by manual massage. Uterus was then exteriorized and cleared of all endometrial clots and debris. I then proceeded with closing the uterine incision using 0 Vicryl suture in running locked fashion. Second layer of imbricating 0 Monocryl was placed. Excellent hemostasis was noted after doing this. I then placed the uterus back in the pelvis and copiously irrigated the pelvis using normal saline. Once again, there was no active bleeding noted from any of my dissection planes. I placed Interceed antiadhesive over my low transverse incision and proceeded with closing the peritoneum using 3-0 Vicryl suture in running fashion. The rectus muscles were reapproximated using 3-0 Vicryl suture in interrupted fashion. A 0 Vicryl suture was then used to reapproximate the fascia, the subcutaneous tissue was reapproximated using 3-0 plain interrupted subcutaneous stitch and skin reapproximated using 4-0 Monocryl running subcuticular. Dermabond was applied to incision and sterile dressing with adhesive white tape. The patient tolerated the procedure well and sent to recovery area in stable condition. Lap and sponge counts were correct at the end of the procedure. Instrument counts correct as well. Two grams of Ancef were given preoperatively for infection prophylaxis. Job ID: [id number] DocumentID: [id number] Dictated Date: 07/09/2021 14:41:42 Utility Bag Assembler Date: 07/10/2021 00:24:16 Dictated By: CARLITOS MANJARREZ DO
[2021-07-10] MEDS: CATHETER FLUSH 10 ML SYR IV SCH ×2 (02:09→08:18)
[2021-07-10] MEDS: KETOROLAC 30 MG/ML VIAL IV SCH ×2 (02:09→08:18)
[2021-07-10] MEDS: HYDROcodone/APAP 5 MG/325 MG (LORTAB) TAB PO PRN ×4 (02:09→20:46)
[2021-07-10 04:30] VITALS: BP 113/59
[2021-07-10 06:25] LABS: BASOPHILS % (AUTO) 0 % (0-10); EOSINOPHILS # (AUTO) 0.1 10^3/uL (0.0-0.3); EOSINOPHILS % (AUTO) 1 % (0-10); HEMATOCRIT 27 % (35-52); HEMOGLOBIN 8.8 g/dL (11.5-16.0); LYMPHOCYTES # (AUTO) 1.3 10^3/uL (1.0-4.0); LYMPHOCYTES % (AUTO) 15 % (12-44); MEAN CORPUSCULAR HEMOGLOBIN 30 pg (25-34); MEAN CORPUSCULAR HGB CONC 33 g/dL (32-36); MEAN CORPUSCULAR VOLUME 90 fL (80-99); MEAN PLATELET VOLUME 11.1 fL (9.0-12.2); MONOCYTES # (AUTO) 0.7 10^3/uL (0.0-1.0); MONOCYTES % (AUTO) 9 % (0-12); NEUTROPHILS # (AUTO) 6.2 10^3/uL (1.8-7.8); NEUTROPHILS % (AUTO) 75 % (42-75); PLATELET COUNT 148 10^3/uL (130-400); WHITE BLOOD COUNT 8.4 10^3/uL (4.3-11.0)
[2021-07-10 08:16] VITALS: BP 122/70
[2021-07-10] MEDS: DOCUSATE SODIUM 100 MG (COLACE) CAP PO SCH ×2 (08:18→20:46)
--- NOTE | 2021-07-10 09:49 | Anesthesia-Regional Post-Op ---
Regional Patient Condition Mental Status: Alert, Oriented x3 Circulation: Same as Pre-Op Headache: Absent Sensation: Full Recovery Motor Block: Absent Post Op Complications Complications None Follow Up Care/Instructions Patient Instructions None needed. Anesthesia/Patient Condition Patient is doing well, no complaints, stable vital signs, no apparent adverse anesthesia problems. No complications reported per nursing. WANDA STRATTON CRNA Jul 10, 2021 09:49
--- NOTE | 2021-07-10 10:02 | Postpartum Progress Note ---
Note Note Day # 1 Subjective: Patient is without complaints. Ambulating, voiding. Tolerating a regular diet without nausea or vomiting. Normal lochia. Pain is well controlled with oral pain medications. Breast feeding. Objective: Physical Exam: General - Alert and oriented, no apparent distress Abdomen - Soft, appropriately tender to palpation, non-distended, fundus firm at umbilicus; incision c/d/i Extremities - no edema, negative Eva's bilaterally Assessment: Post- day # 1, status post RLTCS. Recovering well, hemodynamically stable Acute blood loss anemia Plan: Routine care. Encourage breast feeding. Encourage ambulation. Ferrous sulfate supplementation. Plan for discharge tomorrow Vitals - Labs Vital Signs - I&O Vital Signs Date Time Temp Pulse Resp B/P (MAP) Pulse Ox O2 Delivery O2 Flow Rate FiO2 07/10/21 04:30 36.9 88 18 113/59 (77) 99 Room Air 07/09/21 23:30 36.8 100 18 122/59 (80) 99 Room Air 07/09/21 19:40 36.6 92 18 124/73 (90) 98 Room Air 07/09/21 15:42 Room Air 07/09/21 15:42 35.7 77 18 113/73 (86) 100 Room Air 07/09/21 15:42 35.7 18 113/73 (86) 100 Room Air 07/09/21 15:25 36.4 18 106/73 (84) 100 Room Air 07/09/21 15:25 Room Air 07/09/21 15:10 Room Air 07/09/21 15:10 36.1 16 109/64 (79) 100 Room Air 07/09/21 14:55 Room Air 07/09/21 14:55 36.7 16 105/62 (76) 100 Room Air 07/09/21 12:30 36.1 90 18 115/72 (86) 98 Room Air 07/09/21 10:25 100 18 126/76 (93) I & O 07/10/21 07:00 Intake Total 2750 ml Output Total 2900 ml Balance -150 ml Labs Laboratory Tests 07/09/21 11:05: White Blood Count 7.6, Red Blood Count 3.56L, Hemoglobin 10.6L, Hematocrit 33L, Mean Corpuscular Volume 92, Mean Corpuscular Hemoglobin 30, Mean Corpuscular Hemoglobin Concent 33, Red Cell Distribution Width 14.9H, Platelet Count 172, Mean Platelet Volume 10.7, Immature Granulocyte % (Auto) 1, Neutrophils (%) (Auto) 73, Lymphocytes (%) (Auto) 18, Monocytes (%) (Auto) 8, Eosinophils (%) (Auto) 1, Basophils (%) (Auto) 0, Neutrophils # (Auto) 5.5, Lymphocytes # (Auto) 1.3, Monocytes # (Auto) 0.6, Eosinophils # (Auto) 0.1, Basophils # (Auto) 0.0, Immature Granulocyte # (Auto) 0.1, Sodium Level 138, Potassium Level 4.0, Chloride Level 109H, Carbon Dioxide Level 20L, Anion Gap 9, Blood Urea Nitrogen 9, Creatinine 0.82, Estimat Glomerular Filtration Rate 79, BUN/Creatinine Ratio 11, Glucose Level 80, Uric Acid 6.7, Calcium Level 9.1, Corrected Calcium 9.6, Total Bilirubin 0.3, Aspartate Amino Transf (AST/SGOT) 17, Alanine Aminotransferase (ALT/SGPT) 15, Alkaline Phosphatase 113, Total Protein 6.8, Albumin 3.4 07/09/21 12:49: Glucometer 66L 07/09/21 14:57: Glucometer 57*L 07/09/21 20:30: Glucometer 96 07/10/21 05:47: Glucose Level 73 07/10/21 06:00: White Blood Count 8.4, Red Blood Count 2.98L, Hemoglobin 8.8L, Hematocrit 27L, Mean Corpuscular Volume 90, Mean Corpuscular Hemoglobin 30, Mean Corpuscular Hemoglobin Concent 33, Red Cell Distribution Width 14.9H, Platelet Count 148, Mean Platelet Volume 11.1, Immature Granulocyte % (Auto) 0, Neutrophils (%) (Auto) 75, Lymphocytes (%) (Auto) 15, Monocytes (%) (Auto) 9, Eosinophils (%) (Auto) 1, Basophils (%) (Auto) 0, Neutrophils # (Auto) 6.2, Lymphocytes # (Auto) 1.3, Monocytes # (Auto) 0.7, Eosinophils # (Auto) 0.1, Basophils # (Auto) 0.0, Immature Granulocyte # (Auto) 0.0 FRANCISCA BERGER APRN Jul 10, 2021 10:02
[2021-07-10 11:44] VITALS: BP 122/67
[2021-07-10] MEDS ORDERED: IBUPROFEN 600 MG (MOTRIN) TAB PO ONE (13:55)
[2021-07-10] MEDS: IBUPROFEN 600 MG (MOTRIN) TAB PO SCH ×2 (13:57→20:46)
[2021-07-10 18:06] VITALS: BP 145/83
[2021-07-10 20:46] VITALS: BP 111/72
[2021-07-11 02:57] VITALS: BP 126/71
[2021-07-11] MEDS: HYDROcodone/APAP 5 MG/325 MG (LORTAB) TAB PO PRN ×2 (02:57→09:00)
[2021-07-11] MEDS: IBUPROFEN 600 MG (MOTRIN) TAB PO SCH ×2 (02:57→09:00)
[2021-07-11 09:00] VITALS: BP 120/69
[2021-07-11] MEDS: DOCUSATE SODIUM 100 MG (COLACE) CAP PO SCH (09:00)
[2021-07-11] MEDS ORDERED: IBUP-844 PO (10:00)
[2021-07-11] MEDS ORDERED: METF-399 PO (10:00)
[2021-07-11] MEDS ORDERED: ACHD5005 PO (10:00)
--- NOTE | 2021-07-11 10:02 | Discharge Inst-Women's Service ---
Discharge Inst-Women's Serv Depart Medication/Instructions New, Converted or Re-Newed RX: Transmitted to Pharmacy Consults/Follow Up Additional Follow Up: Yes Orders/Referrals 1wk incision check 6wk PP appt Activity Activity: Activity as Tolerated Driving Instructions: No Driving for 1 Week NO SMOKING: NO SMOKING Nothing Inside Vagina: No Douching, No [place], No Tampons Diet Discharge Diet: No Restrictions Symptoms to Report to DrJacklyn: Bleeding Excessive, Pain Increased, Fever Over 101 Degrees F, Vaginal Bleeding Increase For Any Problems or Questions: Contact Your Physician Skin/Wound Care Infection Signs and Symptoms: Increased Redness, Increased Drainage, Increased Swelling, Temperature Above 101 F Operative Area Clean and Dry: Keep Incision Clean/Dry Stitches/Octavia/Dermabond: Dermabond Bathing Instructions: FRANCISCA Gomez APRN Jul 11, 2021 10:02
--- NOTE | 2021-07-11 10:04 | Postpartum Progress Note ---
Note Note Day # 2 Subjective: Patient is without complaints. Ambulating, voiding. Tolerating a regular diet without nausea or vomiting. Normal lochia. Pain is well controlled with oral pain medications. Breast feeding. Objective: Physical Exam: General - Alert and oriented, no apparent distress Abdomen - Soft, appropriately tender to palpation, non-distended, fundus firm at umbilicus; incision c/d/i Extremities - no edema, negative Eva's bilaterally Assessment: Post- day # 2, status post RLTCS. Recovering well, hemodynamically stable Acute blood loss anemia Plan: Routine care. Encourage breast feeding. Encourage ambulation. Ferrous sulfate supplementation. Plan for discharge today Vitals - Labs Vital Signs - I&O Vital Signs Date Time Temp Pulse Resp B/P (MAP) Pulse Ox O2 Delivery O2 Flow Rate FiO2 07/11/21 09:00 36.5 79 18 120/69 (86) 98 Room Air 07/11/21 02:57 36.5 94 18 126/71 (89) 97 Room Air 07/10/21 20:46 37.2 98 18 111/72 (85) 99 Room Air 07/10/21 18:06 36.7 106 18 145/83 (103) 97 Room Air 07/10/21 11:44 36.8 92 18 122/67 (85) 97 Room Air Labs Laboratory Tests 07/10/21 10:55: Glucometer 124H 07/10/21 15:04: Glucometer 133H 07/10/21 20:53: Glucometer 107 07/11/21 06:59: Glucometer 91 FRANCISCA BERGER APRN Jul 11, 2021 10:04
[2021-07-11 11:20] VITALS: BP 120/69
== END 2021-07-11 11:20 | disposition home or self-care (01) | DRG 787 ==
LOC: LDRP 09:46 → WSo 09:46 → LDRP 10:45 → WSo 10:45 → LDRP 15:50
PROVIDERS: ADMIT Obstetrics & Gynecology; ATTEND Obstetrics & Gynecology
PROC: 10D00Z1 Extraction of Products of Conception, Low, Open Approach (ICD-10-PCS; principal; 2021-07-09 13:40)
DX: O60.14X0 Preterm labor third trimester with preterm delivery third trimester, not applicable or unspecified (principal); D62 Acute posthemorrhagic anemia; Z3A.36 36 weeks gestation of pregnancy; Z37.0 Single live birth; O13.4 Gestational [pregnancy-induced] hypertension without significant proteinuria, complicating childbirth; O34.211 Maternal care for low transverse scar from previous cesarean delivery; O24.424 Gestational diabetes mellitus in childbirth, insulin controlled; O24.415 Gestational diabetes mellitus in pregnancy, controlled by oral hypoglycemic drugs; O99.284 Endocrine, nutritional and metabolic diseases complicating childbirth; E03.9 Hypothyroidism, unspecified; Z88.1 Allergy status to other antibiotic agents; Z79.4 Long term (current) use of insulin; Z79.84 Long term (current) use of oral hypoglycemic drugs; Z79.890 Hormone replacement therapy; O90.81 Anemia of the puerperium
CPT/HCPCS: 36415; 80053; 82947; 83033; 84550; 85025; 85027; 86850; 86900; 86901; 94664; 99212